=== PATIENT | male | born 1955 | race Caucasian/White ===

== ENCOUNTER 2017-01-02 09:22 | Emergency (ER) | payer OTHER ==
[~2017-01-02] VITALS: Ht 182.9 cm; Wt 110.0 kg
[~2017-01-02 09:22] MED LIST: ACETA; ADLT ASA LOW81 MG PO; CARVEDILOL6.25 MG PO; FUROSEMIDE20 MG PO; KLOR-CON 1010 MEQ PO; LEVOTHYROXIN100 MCG PO; MULTI VIT PO; NAPROSYN500 MG OR; NITROSTAT0.4 MG SL; NYSTATIN100000 M1 PO; OXYCODONE; RAMIPRIL2.5 MG PO; SIMVASTATIN40 MG PO; TRAMADOL HCL50 MG PO
[2017-01-02] MEDS ORDERED: LOSARTAN POT25 MG PO (10:01)
[2017-01-02] MEDS ORDERED: ATORVASTATIN CA80 MG PO (10:01)
[2017-01-02] MEDS ORDERED: CLOPIDOGREL75 MG PO (10:02)
[2017-01-02] MEDS ORDERED: TAMSULOSIN HCL0.4 MG PO (10:02)
[2017-01-02] MEDS ORDERED: MOTRIN400 MG PO (10:38)
[2017-01-02 10:45] VITALS: BP 121/67
== END 2017-01-02 10:45 | disposition home or self-care (01) | DRG 556 ==
LOC: ED 09:22
PROC: 2W38X1Z Immobilization of Right Upper Extremity using Splint (ICD-10-PCS; principal; 2017-01-02)
DX: M25.531 Pain in right wrist (principal); W01.0XXA Fall on same level from slipping, tripping and stumbling without subsequent striking against object, initial encounter; Y93.89 Activity, other specified; Y92.007 Garden or yard of unspecified non-institutional (private) residence as the place of occurrence of the external cause

== ENCOUNTER → 2018-04-21 | Outpatient (REF) | payer OTHER ==
[~2018-04-21] MED LIST changes: +ATORVASTATIN CA80 MG PO; +CLOPIDOGREL75 MG PO; +LOSARTAN POT25 MG PO; +MOTRIN400 MG PO; +TAMSULOSIN HCL0.4 MG PO
[2018-04-21 08:15] LABS: HEMATOCRIT 47.4 % (39.0-50.0); HEMOGLOBIN 15.4 g/dl (14.0-18.0); MEAN CELL VOLUME 94.6 fL CALC (80.0-100.0); MEAN CORPUSCULAR HGB 30.7 pG CALC (26.0-32.0); MEAN CORPUSCULAR HGB CONC 32.5 g/L CALC (32.0-36.0); NEUT# 2.62 thou/uL (1.82-7.42); RED BLOOD COUNT 5.01 mill/uL (4.70-6.10)
[2018-04-21 09:06] LABS: ALBUMIN 4.3 g/dL (3.2-5.0); ALKALINE PHOSPHATASE 86 u/l (38-126); ANION GAP 14 (6-22 (CALC)); BUN 11 mg/dL (8-23); BUN/CREATININE RATIO 14 (12-20 (CALC)); CARBON DIOXIDE 28 mmol/l (22-30); CHLORIDE 103 mmol/l (95-108); CREATININE 0.8 mg/dL (0.7-1.3); GFR > 60 ML/MIN (>=60 (CALC)); GFR FOR AFR.AMER. > 60 ML/MIN (>=60 (CALC)); SGOT/AST 22 u/l (19-48); SODIUM 141 mmol/l (137-146); TOTAL PROTEIN 6.8 g/dL (6.3-8.2)
== END | disposition home or self-care (01) | DRG 310 ==
LOC: LAB 07:01
PROVIDERS: ATTEND Internal Medicine Cardiovascular Disease
DX: I49.9 Cardiac arrhythmia, unspecified (principal); R42 Dizziness and giddiness; I25.10 Atherosclerotic heart disease of native coronary artery without angina pectoris

== ENCOUNTER 2023-03-27 14:04 | Emergency (ER) | payer OTHER, MEDICARE ==
[~2023-03-27] VITALS: Ht 182.9 cm; Wt 108.0 kg
[2023-03-27] MEDS ORDERED: METHOCARBAMOL500 MG PO (18:01)
[2023-03-27] MEDS ORDERED: NAPROXEN500 MG PO (18:01)
[2023-03-27 18:55] VITALS: BP 135/69
== END 2023-03-27 18:58 | disposition home or self-care (01) | DRG 552 ==
LOC: ED 14:04
DX: S16.1XXA Strain of muscle, fascia and tendon at neck level, initial encounter (principal); S39.012A Strain of muscle, fascia and tendon of lower back, initial encounter; V59.40XA Driver of pick-up truck or van injured in collision with unspecified motor vehicles in traffic accident, initial encounter